=== PATIENT | male | born 1975 | race Caucasian/White ===

== ENCOUNTER 2021-04-06 07:27 | Emergency (ER) | payer SELFPAY ==
[~2021-04-06] VITALS: Ht 182.9 cm; Wt 74.8 kg
[2021-04-06] MEDS ORDERED: HYDROCODON-ACE1 EA11 PO (10:46)
[2021-04-06] MEDS ORDERED: FAMCICLOVIR500 MG PO (10:46)
== END 2021-04-06 11:08 | disposition home or self-care (01) ==
LOC: ED 07:27
DX: B02.9 Zoster without complications (principal)
CPT/HCPCS: 74177; 80053; 81001; 83690; 85025; 96375; 99284-25; J1170; J1885; J2405; J7030; Q9967